=== PATIENT | male | born 1970 | race Caucasian/White ===

== ENCOUNTER 2019-02-14 20:11 | Emergency (ER) | payer SELFPAY ==
[2019-02-14] MEDS ORDERED: Nicotine Inhaler* 10 MG AMP INH PRN (20:37)
[2019-02-14] MEDS ORDERED: Buprenorp/Nalox 8-2 MG FILM 1 EACH SL FILM ONE (20:48)
--- NOTE | 2019-02-14 20:52 | ED ---
Psychiatric Complaint - HPI Summary HPI Summary: This patient is a 48 year old MF brought in by police to ED with a chief complaint of SI last night. Police found him at his friends house. He texted his friend that if he had a gun he would shoot himself. He has been having increased depression since break up with fianc 2 months ago. He lost his job soon after. He also states that he is enrolled in outpatient counseling for depression and anxiety in [place]. 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 The patient rates the pain 0/10 in severity. Symptoms aggravated by recent stress. Symptoms alleviated by nothing. Patient reports depression and denies SI currently. Patient has been sleeping and eating fine. PMHx of multiple personality disorder. He currently takes Walbutrin, Suboxone, Ativan. He also says he only took his morning dosage of Suboxone and Ativan. - History Of Current Complaint Chief Complaint: EDMentalHealth Time Seen by Provider: 02/14/19 20:37 Hx Obtained From: Patient Onset/Duration: Sudden Onset - last night, Resolved Timing: Intermittent Episode Lasting Severity Currently: None Character: Depressed Aggravating Factor(s): Recent Stress Alleviating Factor(s): Nothing Related History: Positive For: Prior Psychiatric Issues Has Suicidal: Reports: Thoughts, With A Plan - if he had a gun he would shoot himself Has Homicidal: Denies: Thoughts Recent Stressor(s): breakup 2 months ago with his fiance - Allergies/Home Medications Allergies/Adverse Reactions: Allergies Allergy/AdvReac Type Severity Reaction Status Date / Time erythromycin base Allergy Unknown Verified 02/14/19 20:28 Reaction Details prochlorperazine Allergy Unknown Verified 02/14/19 20:28 [From Compazine] Reaction Details Home Medications: Home Medications Albuterol Sulfate [Ventolin Hfa] 18 gm INH Q4HR PRN 02/14/19 [History Confirmed 02/14/19] Buprenorp/Nalox 8-2 MG FILM [Suboxone 8 mg-2 mg Sl Film] 1 each SL BID 02/14/19 [History Confirmed 02/14/19] Gabapentin 400 mg PO TID 02/14/19 [History Confirmed 02/14/19] LORazepam [Ativan 1 MG TAB] 1 mg PO DAILY PRN 02/14/19 [History Confirmed ] QUEtiapine TAB* [Seroquel 100 MG *] 100 mg PO BEDTIME 02/14/19 [History Confirmed 02/14/19] PMH/Surg Hx/FS Hx/Imm Hx Endocrine/Hematology History: Denies: Hx Diabetes Cardiovascular History: Denies: Hx Coronary Artery Disease Psychiatric History: Reports: Hx Anxiety, Hx Depression, Other Psychiatric Issues/Disorders - multiple personality disorder Infectious Disease History: No Infectious Disease History: Denies: Traveled Outside the [place] in Last 30 Days - Family History Known Family History: Positive: Hypertension, Other Family History: mother - thyroid - Social History Alcohol Use: Rare Substance Use Type: Reports: Marijuana Smoking Status (MU): Smoker, Current Status Unknown Review of Systems Positive: Other - patient has been sleeping and eating fine. Negative: Fever, Chills Negative: Erythema Negative: Sore Throat Negative: Chest Pain Negative: Shortness Of Breath, Cough Negative: Abdominal Pain, Vomiting, Nausea Negative: dysuria, hematuria Negative: Myalgia, Edema Negative: Rash Neurological: Other - denies dizziness Psychological: Other - SI last night with a plan to use a gun to shoot himself if he had one Positive: Depressed All Other Systems Reviewed And Are Negative: Yes Physical Exam - Summary Physical Exam Summary: Constitutional: Well-developed, Well-nourished, Alert. (-) Distressed Skin: Warm, Dry HENT: Normocephalic; Atraumatic Eyes: Conjunctiva normal Neck: Musculoskeletal ROM normal neck. (-) JVD, (-) Stridor, (-) Tracheal deviation Cardio: Rhythm regular, rate normal, Heart sounds normal; Intact distal pulses; The pedal pulses are 2+ and symmetric. Radial pulses are 2+ and symmetric. (-) Murmur Pulmonary/Chest wall: Effort normal. (-) Respiratory distress, (-) Wheezes, (-) Rales Abd: Soft, (-) epigastric tenderness, (-) Distension, (-) Guarding, (-) Rebound Musculoskeletal: (-) Edema Lymph: (-) Cervical adenopathy Neuro: Alert, Oriented x3 Psych: Mood and affect Normal Triage Information Reviewed: Yes Vital Signs On Initial Exam: Initial Vitals Temp Pulse Resp BP Pulse Ox 98.4 F 80 16 136/94 95 02/14/19 20:20 02/14/19 20:20 02/14/19 20:20 02/14/19 20:20 02/14/19 20:20 Vital Signs Reviewed: Yes Diagnostics - Vital Signs Vital Signs Temp Pulse Resp BP Pulse Ox 02/14/19 20:20 98.4 F 80 16 136/94 95 - Laboratory Result Diagrams: 02/14/19 20:55 02/14/19 20:55 Lab Statement: Any lab studies that have been ordered have been reviewed, and results considered in the medical decision making process. Course/Dx - Course Assessment/Plan: This patient is a 48 year old MF brought in by police to ED with a chief complaint of SI last night. In the ED course, the patient was given Suboxone and a nicotine inhaler. This patient will be signed out to Dr. Rojas upon shift change, pending MHE. - Differential Dx/Clinical Impression Differential Diagnosis/HQI/PQRI: Positive: Suicidal Ideation Provider Diagnosis: Suicidal ideation Discharge - Sign-Out/Discharge Documenting (check all that apply): Sign-Out Patient - pending MHE Signing out patient TO: Saida Rojas Patient Received Moderate/Deep Sedation with Procedure: No - Discharge Plan Condition: Stable - Attestation Statements Document Initiated by Scribe: Yes Documenting Scribe: Ibrahima Rinaldi Provider For Whom Scribe is Documenting (Include Credential): Bar Morales MD Scribe Attestation: Ibrahima Raphael, scribed for Bar Morales MD on 02/14/19 at [id number]. Status of Scribe Document: Ready
[2019-02-14 21:00] LABS: ABS Basophils 0 10^3/ul (0-0.2); ABS Eosinophils 0.6 10^3/ul (0-0.6); ABS Lymphocytes 2.5 10^3/ul (1.0-4.8); ABS Monocytes 0.5 10^3/ul (0-0.8); ABS Neutrophils 3.7 10^3/ul (1.5-7.7); ABS Nucleated RBC 0 10^3/ul; Eosinophil % 7.6 %; Hematocrit 44 % (36-46); Lymphocyte % 34.4 %; Mean Corpuscular HGB Conc 34 g/dL (31-36); Mean Corpuscular Hemoglobin 30 pg (27-31); Mean Corpuscular Volume 88 fL (80-94); Mean Platelet Volume 7.5 fL (7.4-10.4); Nucleated Red Blood Cells % 0.1; Platelet Count 251 10^3/uL (150-450); Red Blood Count 4.96 10^6 /uL (4.18-5.48); Red Cell Distribution Width 13 % (10.5-15); White Blood Count 7.4 10^3/uL (3.5-10.8)
[2019-02-14 21:11] LABS: Urine Appearance Clear; Urine Bilirubin Negative (Negative); Urine Blood Negative (Negative); Urine Color Yellow; Urine Glucose Negative (Negative); Urine Ketones Negative (Negative); Urine Nitrite Negative (Negative); Urine Protein Negative (Negative); Urine Specific Gravity 1.019 (1.010-1.030); Urine Urobilinogen Negative (Negative)
[2019-02-14 21:16] LABS: ALT 19 U/L (7-52); AST 19 U/L (13-39); Albumin 4.3 g/dL (3.2-5.2); Albumin/Globulin Ratio 1.4 (1-3); Alkaline Phosphatase 76 U/L (34-104); Anion Gap 7 mmol/L (2-11); BUN/Creatinine Ratio 23.7 (8-20); Blood Urea Nitrogen 23 mg/dL (6-24); CO2 Carbon Dioxide 32 mmol/L (22-32); Calcium 9.5 mg/dL (8.6-10.3); Chloride 103 mmol/L (101-111); EGFR African American 100.8 (>60); EGFR Non-African American 83.3 (>60); Globulin 3.1 g/dL (2-4); Glucose 107 mg/dL (70-100); Sodium 142 mmol/L (135-145); Total Protein 7.4 g/dL (6.4-8.9)
[2019-02-14] MEDS ORDERED: Nicotine Inhaler* 10 MG AMP ONE (21:26)
[2019-02-14 21:34] LABS: Barbiturates Urine Screen None Detected (None Detect); Benzodiazepine Urine Screen Presumptive Positive (None Detect); Urine Cannabinoids Screen None Detected (None Detect)
[2019-02-14 21:41] LABS: Acetaminophen < 15 mcg/mL; Alcohol < 10 mg/dL (<10); Salicylate < 2.50 mg/dL (<30)
[2019-02-14 21:56] LABS: TSH (Thyroid Stimulating Horm) 6.33 mcIU/mL (0.34-5.60)
[2019-02-14] MEDS ORDERED: Mouth Piece, Nicotine* 1 EACH CARTRIDGE INH ONE (22:00)
--- NOTE | 2019-02-14 22:14 | ED ---
Progress - Progress Note Progress Note: The pt is a signout from Dr. Morales to Dr. Rojas pending mental health evaluation. Re-Evaluation - Re-Evaluation 1st re-eval Re-Evaluation Time: 01:52 Change: Unchanged Comment: Dr. Driver would like to keep the pt on a mental health hold until we can obtain more information about the pt from [place]. Course/Dx - Course Course Of Treatment: The pt is a signout from Dr. Moraels to Dr. Rojas pending mental health evaluation. As of 151, Dr. Driver would like to keep the pt on a mental health hold until we can obtain more information about the pt from [place]. - Diagnoses Provider Diagnoses: Suicidal ideation Discharge - Sign-Out/Discharge Documenting (check all that apply): Receiving Sign-Out Receiving patient FROM: Bar Morales - Discharge Plan Condition: Stable Referrals: Care [facility] [Outside] - Billing Disposition and Condition Condition: STABLE - Attestation Statements Document Initiated by Scribe: Yes Documenting Scribe: Sada Serrano Provider For Whom Terri is Documenting (Include Credential): Saida Rojas MD. Scribe Attestation: Sada Raphael, avtared for Saida Rojas MD. on 02/15/19 at 0547. Scribe Documentation Reviewed: Yes Provider Attestation: The documentation as recorded by the scribeSada accurately reflects the service I personally performed and the decisions made by Michael morfin MD. Status of Scribe Document: Viewed
--- NOTE | 2019-02-15 06:47 | ED ---
Progress - Progress Note Progress Note: The pt is a signout from Dr. Morales to Dr. Rojas pending mental health evaluation. - Consult/PCP Time Called: 20:57 Re-Evaluation - Re-Evaluation 1st re-eval Re-Evaluation Time: 01:52 Change: Unchanged Comment: Dr. Driver would like to keep the pt on a mental health hold until we can obtain more information about the pt from [place]. Course/Dx - Course Course Of Treatment: The pt is a signout from Dr. Morales to Dr. Rojas pending mental health evaluation. As of 151, Dr. Driver would like to keep the pt on a mental health hold until we can obtain more information about the pt from [place]. The pt will be signed out to Dr. Menendez for mental health hold. - Diagnoses Provider Diagnoses: Suicidal ideation Discharge - Sign-Out/Discharge Documenting (check all that apply): Sign-Out Patient Signing out patient TO: Fernie Menendez - Discharge Plan Condition: Stable Referrals: [facility] [Outside] - Attestation Statements Document Initiated by Scribe: Yes Documenting Scribe: Sada Serrano Provider For Whom Terri is Documenting (Include Credential): Saida Rojas MD. Scribe Attestation: Sada Raphael, avtared for Saida Rojas MD. on 02/15/19 at 0647. Status of Scribe Document: Ready
--- NOTE | 2019-02-15 08:09 | ED ---
Progress - Progress Note Progress Note: The pt was signed out by Dr. Rojas at shift change, pending disposition, awaiting mental health evaluation. Pt had a mental health evaluation and his case was reviewed by Dr. Minor, psychiatrist. Dr. Minor cleared the pt for discharge. Pt will be discharged home after social work consult for housing and with outpatient follow up from [facility]. Dx polysubstance use disorder. Course/Dx - Diagnoses Provider Diagnoses: Polysubstance abuse Discharge - Sign-Out/Discharge Documenting (check all that apply): Patient Departure - Discharge home, Receiving Sign-Out Receiving patient FROM: Saida Rojas Patient Received Moderate/Deep Sedation with Procedure: No - Discharge Plan Condition: Stable Disposition: HOME Patient Education Materials: Depression (ED), Polysubstance Abuse (ED) Referrals: Care [facility] [Outside] - Billing Disposition and Condition Condition: STABLE Disposition: Home - Attestation Statements Document Initiated by Scribe: Yes Documenting Scribe: Vicki Brandon Provider For Whom Scribe is Documenting (Include Credential): Fernie Menendez MD Scribe Attestation: Vicki Raphael, scribed for Fernie Menendez MD on 02/15/19 at 1823. Scribe Documentation Reviewed: Yes Provider Attestation: The documentation as recorded by the Vicki chaves accurately reflects the service I personally performed and the decisions made by , Fernie Menendez MD Status of Scribe Document: Viewed
--- NOTE | 2019-02-15 08:36 | PN ---
ED Flex Patient Progress Note Date of Service: 02/15/19 Subjective: ED day #1 for this 48 y.o. , white male with a history of polysubstance dependence, enrolled in treatment in [facility], visiting a friend in [place] where he relapsed on drugs (opioids, benzos, amphetamines) and became suicidal. Denies SI. Is now homeless. No collateral as family estranged b/c of drug abuse. Objective: middle-aged white male in scrubs; appears to be withdrawing for drugs (red eyes , hypersomnia, hyperphagia, irritability); denies SI Assessment: Polydrug use disorder Plan: Will d/c patient to outpatient services. SW consult for housing support. Vital Signs Temp Pulse Resp BP Pulse Ox 97.9 F 64 14 111/62 97 02/15/19 00:16 02/15/19 00:16 02/15/19 00:16 02/15/19 00:16 02/15/19 00:16 Lab Results - Entire Visit 02/14/19 02/14/19 02/14/19 20:55 20:55 20:37 WBC 7.4 RBC 4.96 Hgb 15.0 Hct 44 MCV 88 MCH 30 MCHC 34 RDW 13 Plt Count 251 MPV 7.5 Neut % (Auto) 50.1 Lymph % (Auto) 34.4 [place] % (Auto) 7.3 Eos % (Auto) 7.6 Baso % (Auto) 0.6 Absolute Neuts (auto) 3.7 Absolute Lymphs (auto) 2.5 Absolute Monos (auto) 0.5 Absolute Eos (auto) 0.6 Absolute Basos (auto) 0 Absolute Nucleated RBC 0 Nucleated RBC % 0.1 Sodium 142 Potassium 4.0 Chloride 103 Carbon Dioxide 32 Anion Gap 7 BUN 23 Creatinine 0.97 Est GFR ( Amer) 100.8 Est GFR (Non-Af Amer) 83.3 BUN/Creatinine Ratio 23.7 H Glucose 107 H Calcium 9.5 Total Bilirubin 0.60 AST 19 ALT 19 Alkaline Phosphatase 76 Total Protein 7.4 Albumin 4.3 Globulin 3.1 Albumin/Globulin Ratio 1.4 TSH 6.33 H Urine Color Urine Appearance Urine pH Ur Specific [place] Urine Protein Urine Ketones Urine Blood Urine Nitrate Urine Bilirubin Urine Urobilinogen Ur Leukocyte Esterase Urine Glucose Salicylates < 2.50 Urine Opiates Screen Presumptive positive A Acetaminophen < 15 Ur Barbiturates Screen None detected Ur Phencyclidine Scrn None detected Ur Amphetamines Screen Presumptive positive A U Benzodiazepines Scrn Presumptive positive A Urine Cocaine Screen None detected U Cannabinoids Screen None detected Serum Alcohol < 10 02/14/19 20:37 WBC RBC Hgb Hct MCV MCH MCHC RDW Plt Count MPV Neut % (Auto) Lymph % (Auto) [place] % (Auto) Eos % (Auto) Baso % (Auto) Absolute Neuts (auto) Absolute Lymphs (auto) Absolute Monos (auto) Absolute Eos (auto) Absolute Basos (auto) Absolute Nucleated RBC Nucleated RBC % Sodium Potassium Chloride Carbon Dioxide Anion Gap BUN Creatinine Est GFR ( Amer) Est GFR (Non-Af Amer) BUN/Creatinine Ratio Glucose Calcium Total Bilirubin AST ALT Alkaline Phosphatase Total Protein Albumin Globulin Albumin/Globulin Ratio TSH Urine Color Yellow Urine Appearance Clear Urine pH 5.0 Ur Specific [place] 1.019 Urine Protein Negative Urine Ketones Negative Urine Blood Negative Urine Nitrate Negative Urine Bilirubin Negative Urine Urobilinogen Negative Ur Leukocyte Esterase Negative Urine Glucose Negative Salicylates Urine Opiates Screen Acetaminophen Ur Barbiturates Screen Ur Phencyclidine Scrn Ur Amphetamines Screen U Benzodiazepines Scrn Urine Cocaine Screen U Cannabinoids Screen Serum Alcohol
[2019-02-15] MEDS ORDERED: Gabapentin CAP(*) 400 MG PO SCH (11:30)
[2019-02-15] MEDS ORDERED: Buprenorp/Nalox 8-2 MG FILM 1 EACH SL FILM ONE (12:00)
[2019-02-15 12:10] VITALS: BP 135/91
== END 2019-02-15 12:58 | disposition home or self-care (01) ==
LOC: ED 20:11
DX: R45.851 Suicidal ideations (principal); F19.10 Other psychoactive substance abuse, uncomplicated; F41.9 Anxiety disorder, unspecified; F32.9 Major depressive disorder, single episode, unspecified; F44.81 Dissociative identity disorder; Z88.3 Allergy status to other anti-infective agents; Z88.8 Allergy status to other drugs, medicaments and biological substances; Z79.899 Other long term (current) drug therapy
CPT/HCPCS: 36415; 80053; 80307; 80320; 80329; 81003; 84443; 85025; 93005; 99285; A9270-GY; G0480